=== PATIENT | female | born 1945 | race Caucasian/White ===

== ENCOUNTER 2017-07-03 13:14 | Emergency (ER) | payer MEDICARE, BC ==
[2017-07-03] MEDS ORDERED: Acetaminophen 500 MG TAB ONE (14:10)
[2017-07-03 14:25] LABS: #Lymphocytes 0.8 thou/uL (1.20-3.40); #Monocytes 0.5 thou/uL (0.11-0.59); #Neutrophils 11.1 thou/uL (1.40-6.50); %Basophils 0.2 % (0.0-1.0); %Eosinophils 0.1 % (0.0-10.0); %Lymphocytes 6.6 % (21.0-51.0); %Monocytes 3.8 % (0.0-10.0); Hematocrit 42.8 % (36.0-47.0); Mean Platelet Volume 8.2 fL (7.4-10.4); Red Blood Cell (RBC) Count 4.54 mill/uL (4.20-5.40); White Blood Cell (WBC) Count 12.4 thou/uL (4.8-10.8)
[2017-07-03 14:41] LABS: Lactic Acid - Sepsis 1.1 mmol/L (0.5-2.2)
[2017-07-03 14:48] LABS: ALT (SGPT) 15 U/L (8-55); AST (SGOT) 29 U/L (5-34); Alkaline Phosphatase 95 U/L (40-150); Anion Gap 14 mmol/L (10-20); BUN (Urea Nitrogen) 14 mg/dL (9.8-20.1); Bilirubin, Total 1.6 mg/dL (0.2-1.2); CK (CPK) 26 U/L (29-168); Calc. Creatinine Clearance 0 mL/min (70-130); Calcium 9.3 mg/dL (7.8-10.44); Carbon Dioxide 27 mmol/L (23-31); Chloride 101 mmol/L (98-107); Estimated GFR-MDRD 54; Globulin 3.3 g/dL (2.4-3.5); Lipase 11 U/L (8-78); Protein, Total 7.2 g/dL (6.0-8.3)
[2017-07-03 14:51] LABS: Troponin I 0.018 ng/mL (< 0.028)
--- NOTE | 2017-07-03 14:57 | RAD ---
PORTABLE CHEST 1 VIEW: Date: 07/03/17 Time: 1415 HOURS HISTORY: Fever. FINDINGS: The heart size is enlarged. The lungs are well expanded without confluent areas of consolidation, pn eumothorax, jayne pulmonary edema, or pleural effusions. There are degenerative changes in the spine . IMPRESSION: Cardiomegaly. POS: KATE
[2017-07-03 15:33] LABS: Bilirubin Moderate (Negative); Blood, Urine Negative (Negative); Glucose, Urine (Dipstick) Negative (Negative); Ketone, Urine 15 mg/dL (Negative); Nitrite Positive (Negative); Protein, Urine (Dipstick) 30 mg/dL (Neg-Trace)
[2017-07-03 15:37] LABS: Bacteria/HPF 4+ HPF (None Seen); Hyaline Casts/LPF 4-6 HYALINE CAST LPF (0-3 Hyaline); WBC/HPF 21-50 HPF (0-3)
[2017-07-03] MEDS ORDERED: cefTRIAXone\\ROCEPHIN 1 GM VIAL ONE (15:53)
== END 2017-07-03 17:17 | disposition home or self-care (01) ==
LOC: ERS 13:14
DX: E86.0 Dehydration (principal); N39.0 Urinary tract infection, site not specified; E11.9 Type 2 diabetes mellitus without complications; I10 Essential (primary) hypertension; Z79.899 Other long term (current) drug therapy; Z79.84 Long term (current) use of oral hypoglycemic drugs
CPT/HCPCS: 36415; 71010; 80053; 81003; 81015; 82553; 83605; 83690; 84484; 85025; 87040; 87077; 87086; 87186; 93005; 96361; 96365; J0696

== ENCOUNTER 2020-07-07 20:04 | Emergency (ER) | payer MEDICARE, BC ==
--- NOTE | 2020-07-07 20:59 | RAD ---
RIGHT FOOT: 07/07/20 Three views. HISTORY: Trauma. Small spur from the plantar calcaneus. Tarsals appear intact. The metatarsals and phalanges appear intact. IMPRESSION: No acute findings. POS: AGW
[2020-07-07] MEDS ORDERED: HYDROcodone/Acetaminophen 5/325 mg Tablet ONE (21:34)
--- NOTE | 2020-07-07 22:50 | ULT ---
Right lower extremity venous Doppler ultrasound 07/07/2020 COMPARISON: None HISTORY: Foot pain and swelling TECHNIQUE: Multiplanar grayscale sonographic imaging venous structures right lower extremity obtained with color flow and spectral analysis FINDINGS: Right common femoral vein, greater saphenous vein, profunda femoral vein, femoral vein, pop liteal vein, and posterior tibial vein are patent. Normal blood flow, augmentation, and compression within the deep venous system. No evidence for DVT. IMPRESSION: No evidence for deep venous thrombosis of the right lower extremity.
== END 2020-07-07 22:55 | disposition home or self-care (01) ==
LOC: ERS 20:04
DX: M79.671 Pain in right foot (principal); M79.89 Other specified soft tissue disorders; E11.9 Type 2 diabetes mellitus without complications; I10 Essential (primary) hypertension; Z79.899 Other long term (current) drug therapy; Z85.3 Personal history of malignant neoplasm of breast

== ENCOUNTER 2025-06-06 11:24 | Inpatient (IN) | payer MEDICARE, SELFPAY ==
[2025-06-06 12:37] LABS: #Basophils 0.07 10x3/uL (0.0-0.2); #Eosinophils 0.17 10x3/uL (0.0-0.7); #Monocytes 0.41 10x3/uL (0.11-0.59); #Neutrophils 5.19 10x3/uL (1.40-6.50); %Basophils 0.9 % (0.0-1.0); %Eosinophils 2.1 % (0.0-10.0); %Lymphocytes 28.7 % (21.0-51.0); %Monocytes 5.0 % (0.0-10.0); %Neutrophils 63.1 % (42.0-75.0); Hematocrit 43.8 % (36.0-47.0); Hemoglobin 14.7 g/dL (12.0-16.0); Mean Corpuscular Hemoglobin 28.8 pg (27.0-31.0); Mean Corpuscular Volume 85.7 fL (78.0-98.0); Platelet Count 297 10x3/uL (130-400); Red Blood Cell (RBC) Count 5.11 mill/uL (4.20-5.40); White Blood Cell (WBC) Count 8.22 10x3/uL (4.8-10.8)
[2025-06-06 12:55] LABS: ALT (SGPT) 30 U/L (Less than 34); AST (SGOT) 42 U/L (11-34); Albumin 4.0 g/dL (3.1-4.5); Alkaline Phosphatase 126 U/L (40-110); Anion Gap 20 mmol/L (10-20); BUN (Urea Nitrogen) 20 mg/dL (9.8-20.1); Bilirubin, Total 0.9 mg/dL (0.3-1.2); Calc. Creatinine Clearance 0 mL/min (70-130); Calcium 10.4 mg/dL (7.8-10.44); Carbon Dioxide 24 mmol/L (23-31); Chloride 99 mmol/L (98-107); Globulin 3.0 g/dL (2.4-3.5); Glucose 229 mg/dL (83-110); Potassium 5.8 mmol/L (3.5-5.1); Sodium 137 mmol/L (136-145)
[2025-06-06] MEDS ORDERED: CALCIUM GLUC 1 GM/NS 50 ML IV Bag ONE (13:26)
[2025-06-06] MEDS ORDERED: Dextrose 50% Abboject 50 ML SYRINGE ONE (13:30)
[2025-06-06] MEDS ORDERED: Calcium Chloride 1 GM/10 ML Abboject SYRINGE ONE (13:30)
[2025-06-06] MEDS ORDERED: Senokot S 8.6-50 MG TAB PO PRN (16:00)
[2025-06-06] MEDS ORDERED: Glucagon 1 MG/ML KIT IM PRN (16:00)
[2025-06-06] MEDS ORDERED: Ondansetron PF 4 MG/2 ML Vial IVP PRN (16:00)
[2025-06-06] MEDS ORDERED: Acetaminophen 325 MG TAB PO PRN (16:00)
[2025-06-06] MEDS ORDERED: Melatonin 3 MG TAB PO PRN (16:00)
[2025-06-06] MEDS ORDERED: Dextrose 50% Abboject 50 ML SYRINGE SLOW IVP PRN (16:00)
[2025-06-06 18:31] LABS: Anion Gap 16 mmol/L (10-20); BUN (Urea Nitrogen) 17 mg/dL (9.8-20.1); Calc. Creatinine Clearance 0 mL/min (70-130); Calcium 10.6 mg/dL (7.8-10.44); Carbon Dioxide 26 mmol/L (23-31); Chloride 102 mmol/L (98-107); Glucose 164 mg/dL (83-110); Potassium 4.0 mmol/L (3.5-5.1); Sodium 140 mmol/L (136-145)
[2025-06-06 19:43] VITALS: BMI 19.9
[2025-06-06] MEDS: Famotidine/PF 20 mg/2ml Vial SLOW IVP SCH (21:05)
[2025-06-07 05:49] LABS: Anion Gap 11 mmol/L (10-20); BUN (Urea Nitrogen) 17 mg/dL (9.8-20.1); Calc. Creatinine Clearance 53 mL/min (70-130); Calcium 9.2 mg/dL (7.8-10.44); Carbon Dioxide 27 mmol/L (23-31); Cardiac Risk 2.5 (Less than 4.5); Chloride 105 mmol/L (98-107); Cholesterol 109 mg/dl (< 200 Desired); Glucose 224 mg/dL (83-110); HDL Cholesterol 43 mg/dL (>60 Neg Risk); LDL Cholesterol, Calculated 57 mg/dL; Potassium 3.8 mmol/L (3.5-5.1); Sodium 139 mmol/L (136-145); Triglycerides 43 mg/dL (Less than 150)
[2025-06-07] MEDS ORDERED: Iopamidol-370 76% 500 ML MDV (1 ML CHARGE) ONE (10:24)
[2025-06-07] MEDS: Insulin Glargine 30 UNITS/0.3 ML VIAL SC SCH (10:52)
[2025-06-07] MEDS: Enoxaparin 40 MG (0.4 mL) SYRINGE SC SCH (10:52)
[2025-06-07] MEDS: Lisinopril 20 MG TAB PO SCH (10:53)
[2025-06-07] MEDS: Aspirin 81 mg Enteric Coated Tablet PO SCH (11:11)
[2025-06-07 15:43] VITALS: TEMP 98.3
[2025-06-07] MEDS: glipiZIDE 10 MG TAB PO SCH (17:30)
[2025-06-07 18:36] VITALS: BP 189/77
== END 2025-06-07 19:28 | disposition home or self-care (01) | DRG 641 ==
LOC: ERS 11:24 → OBS 15:41
PROVIDERS: ADMIT Family Medicine; ATTEND Hospitalist
DX: E87.5 Hyperkalemia (principal); I10 Essential (primary) hypertension; E11.9 Type 2 diabetes mellitus without complications; R29.6 Repeated falls; R20.0 Anesthesia of skin; R20.2 Paresthesia of skin; Z91.148 Patient's other noncompliance with medication regimen for other reason; Z85.3 Personal history of malignant neoplasm of breast; W18.30XA Fall on same level, unspecified, initial encounter
CPT/HCPCS: 36415; 36416; 70450; 70496; 70498; 70551; 71045; 72170; 80048; 80053; 80061; 83036; 84443; 84484; 85025; 93005; 93306; 93880; 96374; 96375; J0613; J1650; J1815; J7030; J7999